=== PATIENT | female | born 1960 | race Two or more races ===

== ENCOUNTER 2017-12-22 06:25 | Day surgery (SDC) | payer BC ==
[2017-12-22] VITALS (8 sets, daily range): BP systolic 111–142; BP diastolic 77–89
[~2017-12-22] VITALS: Ht 165.1 cm; Wt 71.7 kg
[2017-12-22] MEDS ORDERED: LR 1000ml 1,000 ML IVLG SCH (06:53)
[2017-12-22] MEDS ORDERED: Midazolam 2mg/2ml Inj ONE (07:00)
[2017-12-22] MEDS ORDERED: Propofol 200mg/20ml IV ONE (07:00)
[2017-12-22] MEDS ORDERED: LR 1000ml ONE (07:00)
[2017-12-22] MEDS ORDERED: Lidocaine 1% MPF 10mg/ml 5ml ONE (07:00)
[2017-12-22] MEDS ORDERED: ASPIR 8181 MG ORAL (07:08)
[2017-12-22] MEDS ORDERED: LISINOPRIL5 MG ORAL (07:08)
[2017-12-22] MEDS ORDERED: GLYBURIDE5 MG PO (07:08)
[2017-12-22] MEDS ORDERED: METFORMIN HCL1000 M3 PO (07:08)
--- NOTE | 2017-12-22 08:06 | Anethesia Preoperative Eval ---
Anesthesia Pre-op PMH/ROS General Date of Evaluation: Dec 22, 2017 Time of Evaluation: 07:15 Anesthesiologist: Willam ASA Score: ASA 1 Mallampati Score Class I : Soft palate, uvula, fauces, pillars visible Class II: Soft palate, uvula, fauces visible Class III: Soft palate, base of uvula visible Class IV: Only hard plate visible Mallampati Classification: Class I Surgeon: Jeffery Diagnosis: feccal blood Surgical Procedure: EGD/Colonoscopy Anesthesia History: none Family History: no anesthesia problems Allergies: Coded Allergies: No Known Allergies (Unverified , 12/22/17) Medications: see eMAR Past Medical History Cardiovascular: Reports: HTN Pulmonary: Denies: asthma, COPD, [place], other Gastrointestinal/Genitourinary: Denies: GERD, CRI, ESRD, other Neurologic/Psychiatric: Denies: dementia, CVA, depression/anxiety, TIA, other Endocrine: Reports: DM - BS 235, will continue meds post op HEENT: Denies: cataract (L), cataract (R), glaucoma, [place] (L), [place] (R), other Hematology/Immune: Denies: anemia, DVT, bleeding disorder, other Musculoskeletal/Integumentary: Denies: OA, RA, DJD, DDD, edema, other Anesthesia Pre-op Phys. Exam Physician Exam Last Vital Signs Date Time Temp Pulse Resp B/P (MAP) Pulse Ox O2 Delivery O2 Flow Rate FiO2 12/22/17 06:59 97.8 81 17 142/77 98 Room Air Constitutional: NAD Neurologic: CN 2-12 intact Cardiovascular: RRR Respiratory: CTA Gastrointestinal: S/NT/ND Airway Exam Mallampati Score: Class I MO: full ROM: full Teeth: missing Dentures: upper, lower - partials Anesthesia Pre-op A/P Labs chart reviewed Accucheck 235 Studies Pre-op Studies: EKG Risk Assessment & Plan Assessment: A&Ox4 Plan: MAC Status Change Before Surgery: No Pre-Antibiotics Given Within 1 Hr of Incision: Alexus Marques CRNA Dec 22, 2017 08:06
--- NOTE | 2017-12-22 08:07 | Immediate Post-Op Evaluation ---
Immediate Post-Op Evalulation Immediate Post-Op Evalulation Procedure: EGD/Colon Date of Evaluation: Dec 22, 2017 Time of Evaluation: 08:30 IV Fluids: LR 550 ml Blood Products: 0 Estimated Blood Loss: 0 Urinary Output: 0 Blood Pressure Systolic: 111 Blood Pressure Diastolic: 79 Pulse Rate: 84 Respiratory Rate: 18 O2 Sat by Pulse Oximetry: 99 Temperature (Fahrenheit): 98.7 Pain Score (1-10): 0 Nausea: No Vomiting: No Complications none noted Patient Status: awake, reacts Hydration Status: adequate Given Within 1 Hr of Incision: No - none per surgeon Alexus Quarles CRNA Dec 22, 2017 08:07
--- NOTE | 2017-12-22 08:08 | 48 Hour Post Anesthesia Eval ---
Post Anesthesia Evaluation Procedure: EGD/Colon Date of Evaluation: Dec 22, 2017 Time of Evaluation: 08:55 Blood Pressure Systolic: 123 0: 77 Pulse Rate: 82 Respiratory Rate: 20 Temperature (Fahrenheit): 98.7 O2 Sat by Pulse Oximetry: 99 Airway: patent Nausea: No Vomiting: No Pain Intensity: 0 Hydration Status: adequate Mental Status/LOC: patient returned to baseline Post-Anesthesia Complications: none noted Follow-up care needed: patient intructions given Alexus Quarles CRNA Dec 22, 2017 08:08
--- NOTE | 2017-12-22 15:47 | Pre-Procedure Note/Attestation ---
Pre-Procedure Note/Attestation Complete Prior to Procedure Planned Procedure: not applicable Procedure Narrative: EGGD/Colon Indications for Procedure Pre-Operative Diagnosis: OB (+) Attestation I attest that I discussed the nature of the procedure; its benefits; risks and complications; and alternatives (and the risks and benefits of such alternatives ), prior to the procedure, with the patient (or the patient's legal dental sales representative). I attest that, if there was a reasonable possibility of needing a blood transfusion, the patient (or the patient's legal dental sales representative) was given the [facility] standardized written summary, pursuant to the Eduard Ranier Blood Safety Act ([place] Health and Safety Code # 1645, as amended). I attest that I re-evaluated the patient just prior to the surgery and that there has been no change in the patient's H&P, except as documented below: KALEY HURTADO Dec 22, 2017 15:47
--- NOTE | 2017-12-22 15:47 | Short Stay Surgery H&P ---
History of Present Illness History of Present Illness Chief Complaint See typed H&P HPI Chantell Hinton is a 57 year old female who was admitted on for Other Fecal Abnormality Patient History Allergies: Coded Allergies: No Known Allergies (Unverified , 12/22/17) PAST MEDICAL HISTORY: Past Surgeries: Social History: Medication History Scheduled Aspirin* (Aspir 81*), 81 MG ORAL DAILY, (Reported) Glyburide (Glyburide), 10 MG PO BID, (Reported) Lisinopril (Lisinopril*), 5 MG ORAL DAILY, (Reported) Metformin HCl (Metformin HCl ER), 1,000 MG PO BID, (Reported) Physical Exam Vital Signs Last Vital Signs Date Time Temp Pulse Resp B/P (MAP) Pulse Ox O2 Delivery O2 Flow Rate FiO2 12/22/17 09:25 72 18 139/79 97 Room Air 12/22/17 09:05 97.0 12/22/17 08:40 3.0 Plan Attestation Are the patient's medical conditions optimized for surgery? KALEY HURTADO Dec 22, 2017 15:47
--- NOTE | 2017-12-22 15:48 | Endoscopy Procedure Note ---
Endoscopy Procedure Note Indication for Procedure: OB (+) Operative Findings/Diagnosis: mild non erosive gastritis Specimen: yes Pt Tolerated Procedure Well: Yes Estimated Blood Loss: none Anesthesiologist: See report Anesthesia: MAC, moderate sedation Medication Given: see anesthesia record Implant(s) used?: No 50 yrs or older w/o bx or poly: Not Applicable 10yrs. F/U not recommended: Not Applicable If not recommended, why?: KALEY HURTADO Dec 22, 2017 15:48
--- NOTE | 2017-12-22 15:50 | Brief Operative Note ---
Immediate Post Operative Note Operative Note Chief Complaint: OB (+) Pre-op Diagnosis: OB (+) Procedure: EGD with Bx/Colon with bx Post-op Diagnosis: mild non erosive gastritis - bx dim TV colon polyp - bx o/w normal colon x 2, including 5 cm TI Surgeon: farida Anesthesiologist: see notes Anesthesia: MAC Specimen: yes Complications: none Condition: stable Fluids: reported Estimated Blood Loss: none Drains: none Implant(s) used?: No KALEY HURTADO Dec 22, 2017 15:50
--- NOTE | 2017-12-23 04:15 | Procedure Note ---
DATE OF PROCEDURE: 12/22/2017 GASTROENTEROLOGY PROCEDURE REPORT PROCEDURE: Upper gastrointestinal endoscopy with biopsy as well as colonoscopy with biopsy. SURGEON: Marianna Gil M.D. ANESTHESIA: Please see the separate anesthesiologist notes for details. PRE-ENDOSCOPIC DIAGNOSIS: Heme-positive stools. POST-ENDOSCOPIC DIAGNOSES: 1. Nonerosive, erythematous mild gastritis, status post biopsy of the antrum. 2. Normal terminal ileum. 3. Diminutive polyp in the proximal transverse colon, status post biopsy removal. DESCRIPTION OF PROCEDURE: The procedure, its risks, indications, alternatives, and possible complications were explained and an informed consent was obtained. Diagnostic upper endoscope was introduced into the oropharynx and advanced to the duodenum. The endoscope was then gradually withdrawn and the mucosa was examined carefully. Examination of the upper gastrointestinal mucosa revealed mild nonerosive erythematous gastritis, and biopsies of the antrum were sent to pathology for review. The colonoscope was removed. The rectal exam was done, and the colonoscope was introduced into the rectum and advanced 5 cm into the terminal ileum. The colonoscope was then withdrawn all the way to the rectum gradually. Mucosa was examined carefully. Because of lack of the pathologic finding that would explain heme-positive stools, the colonoscope was then readvanced to the cecum and once again withdrawn very carefully. The only pathology identified was a diminutive 3 to 4 mm polyp versus fold in the proximal transverse colon, which was biopsied off. The remainder of the examination did not show any pathology. The colonoscope was removed, and the patient was sent to recovery in good condition. COMPLICATIONS: None. ASSESSMENT: There was no abnormality in this examination, which could clearly explain the heme-positive stools, although the patient may have had this finding due to the gastritis. The patient's blood count and stool occult blood will be evaluated as an outpatient and consideration will be made to possible capsule endoscopy to complete the workup of the gastrointestinal tract. RECOMMENDATIONS: 1. Resume oral diet. 2. Outpatient followup. 3. Follow up biopsy results. 4. Monitor CBC and stool Hemoccult. Marianna Gil M.D. DR: BISHNU JOB#: [id number] CC:
== END 2017-12-22 09:45 | disposition home or self-care (01) ==
LOC: GAS 06:25
DX: K29.70 Gastritis, unspecified, without bleeding (principal); K92.1 Melena; B96.81 Helicobacter pylori [H. pylori] as the cause of diseases classified elsewhere; D12.3 Benign neoplasm of transverse colon; Z79.82 Long term (current) use of aspirin; Z79.84 Long term (current) use of oral hypoglycemic drugs; I10 Essential (primary) hypertension; E11.40 Type 2 diabetes mellitus with diabetic neuropathy, unspecified; Z83.3 Family history of diabetes mellitus; Z82.49 Family history of ischemic heart disease and other diseases of the circulatory system
CPT/HCPCS: 43239; 45380; 82962; J2250; J2704; J7120; 94003; 94150

== ENCOUNTER 2020-01-14 17:00 | Inpatient (IN) | payer BC ==
[~2020-01-14] VITALS: Ht 172.7 cm; Wt 82.6 kg
[~2020-01-14 17:00] MED LIST: ASPIR 8181 MG ORAL; GLYBURIDE5 MG PO; LISINOPRIL5 MG ORAL; METFORMIN HCL1000 M3 PO
--- NOTE | 2020-01-14 17:20 | NUR ---
ED Nurse Note: Pt walked in from home c/o bilateral leg ulcers that are worsening. Seen by Dr. Gil today and he referred her here. Respirations even and unlabored on room air. A+Ox4. Vitals stable as documented. Addendum: 01/14/20 at 1741 by BDUTTON correction: ULCER ON LEFT LEG
[2020-01-14 17:30] VITALS: BP 144/76
[2020-01-14] MEDS ORDERED: cefTRIAXone 1 GM in NS 55 ML IVPB ONE (17:30)
--- NOTE | 2020-01-14 17:34 | Emergency Room Report ---
History of Present Illness General Chief Complaint: Skin Rash/Abscess Source: Patient, Significant Other Present Illness HPI 59-year-old female history of diabetes presented for left lower extremity ulcer. Patient states the ulcer has been gradually worsening over the past year. Worse over the past week. Patient currently on oral antibiotics however still worsening and increasing in size. She denies any pain. Some drainage from the wound. She is compliant with her diabetic medications. She saw her primary care doctor today, Dr. Anderson, who sent her in for further evaluation and IV antibiotics. She denies any fevers. Allergies: Coded Allergies: No Known Allergies (Unverified , 12/22/17) Patient History Past Medical History: see triage record Last Menstrual Period: na Reviewed Nursing Documentation: PMH: Agreed; PSxH: Agreed Nursing Documentation-PMH Hx Cardiac Problems: Yes Hx Hypertension: Yes Hx Diabetes: Yes Hx Cancer: No Hx Gastrointestinal Problems: No Hx Neurological Problems: No Review of Systems All Other Systems: negative except mentioned in HPI Physical Exam Vital Signs Date Time Temp Pulse Resp B/P (MAP) Pulse Ox O2 Delivery O2 Flow Rate FiO2 01/14/20 17:10 98.6 85 20 144/76 (98) 97 Room Air Sp02 EP Interpretation: reviewed, normal General Appearance: well appearing, no apparent distress Head: normocephalic, atraumatic Eyes: bilateral eye PERRL, bilateral eye EOMI ENT: hearing grossly normal, moist mucus membranes Neck: full range of motion, supple Respiratory: lungs clear, normal breath sounds, no rhonchi, no respiratory distress, no retraction, no wheezing Cardiovascular #1: normal peripheral pulses, regular rate, rhythm, no murmur Gastrointestinal: non tender, soft, non-distended, no guarding Musculoskeletal: other - Ulcer noted to left lower extremity, lateral side, deep base with exudates noted. Approximately 3 x 4 cm. 2+ pulses palpated in the left foot, mild surrounding erythema of the ulcer with mild tenderness to palpation however no calf tenderness Neurologic: alert, oriented x3, no focal defects Skin: Decubitus/Ulcer - Ulcer noted to left lateral lower extremity, normal color, warm/dry Medical Decision Making Diagnostic Impression: Primary Impression: Infected ulcer of skin ER Course Differential diagnosis included but not limited to stasis ulcer, nonhealing wound, cellulitis to name few. Laboratory studies and blood culture sent. IV antibiotics started. As patient has failed outpatient treatment for her ulcer she will require admission to the hospital. Patient signed out to Dr. Vides pending admission Last Vital Signs Date Time Temp Pulse Resp B/P (MAP) Pulse Ox O2 Delivery O2 Flow Rate FiO2 01/14/20 17:10 98.6 85 20 144/76 (98) 97 Room Air Status: unchanged Disposition: ADMITTED INPATIENT Condition: Serious Signed Out To: Bandar Lorenzana M.D. Jan 14, 2020 17:34
[2020-01-14 18:00] LABS: BASOPHILS % (AUTO) 0.8 % (0.0-2.0); EOSINOPHILS % (AUTO) 1.4 % (0.0-3.0); HEMATOCRIT 31.6 % (37.0-47.0); HEMOGLOBIN 10.7 G/DL (12.0-16.0); LYMPHOCYTES % (AUTO) 25.1 % (20.0-45.0); MEAN CORPUSCULAR VOLUME 81 FL (80-99); MONOCYTES % (AUTO) 4.7 % (1.0-10.0); PLATELET COUNT 315 K/UL (150-450); RED BLOOD COUNT 3.91 M/UL (4.20-5.40); RED CELL DISTRIBUTION WIDTH 11.8 % (11.6-14.8); WHITE BLOOD COUNT 8.3 K/UL (4.8-10.8)
[2020-01-14 18:07] LABS: ANION GAP 9 mmol/L (5-15); BLOOD UREA NITROGEN 18 mg/dL (7-18); CALCIUM 9.2 MG/DL (8.5-10.1); CARBON DIOXIDE 28 MMOL/L (21-32); CHLORIDE 103 MMOL/L (98-107); CREATININE 0.7 MG/DL (0.55-1.30); POTASSIUM 4.3 MMOL/L (3.5-5.1); SODIUM 140 MMOL/L (136-145)
[2020-01-14 18:12] LABS: ALANINE AMINOTRANSFERASE 23 U/L (12-78); ALBUMIN 3.3 G/DL (3.4-5.0); ALBUMIN/GLOBULIN RATIO 0.8 (1.0-2.7); ALKALINE PHOSPHATASE 78 U/L (46-116); ASPARTATE AMINO TRANSFERASE 14 U/L (15-37); BILIRUBIN,TOTAL 0.1 MG/DL (0.2-1.0)
--- NOTE | 2020-01-14 19:10 | NUR ---
ED Nurse Note: Report given to BIANKA Regalado. Pt in stable condition; plan of care endorsed.
--- NOTE | 2020-01-14 19:30 | NUR ---
ED Nurse Note: Reassesed patient, patient resting in bed, no acute distress noted.
--- NOTE | 2020-01-14 19:45 | NUR ---
ED Nurse Note: ERMD at bedside.
[2020-01-14] MEDS ORDERED: AMOXICILLI200 MG/5 M PO (20:31)
[2020-01-14] MEDS ORDERED: ATORVASTATIN CA20 MG ORAL (20:31)
[2020-01-14] MEDS ORDERED: ACTOS45 MG ORAL (20:31)
[2020-01-14] MEDS ORDERED: LISINOPRIL-HCT1 EACH ORAL (20:31)
[2020-01-14] MEDS ORDERED: JANUVIA25 MG ORAL (20:31)
[2020-01-14] MEDS ORDERED: ASPIRIN325 MG ORAL (20:31)
[2020-01-14] MEDS ORDERED: BENZONATATE200 MG ORAL (20:31)
[2020-01-14] MEDS ORDERED: IBUPROFEN600 MG ORAL (20:31)
--- NOTE | 2020-01-14 21:00 | NUR ---
NURSE NOTES: Received from Wilfrido Jarvis, will wait fpr pt arrival
--- NOTE | 2020-01-14 21:05 | NUR ---
TRANSFER TO FLOOR: Patient transferred to Med Surg 3E as ordered, per Dr. Langston. Report given to BIANKA Salvador. Family informed of transfer. Patient transferred via gurney with 1 RN in stable condition.
--- NOTE | 2020-01-14 21:05 | NUR ---
ED Nurse Note: Report given to BIANKA Salvador in med surg.
--- NOTE | 2020-01-14 21:18 | NUR ---
NURSE NOTES: Pt arrived to the unit via gurney, escorted by er staff and family by the bed side, pt has no s/s of distress. Pt helped transfer to unit bed . pt is a/ox4, breaths even regular and unlabored, Vitals Bp 116/70, HR 75 T 97.9, RR 18 and o2sat 96 at RA. Denies pain at rest but mild pain of left leg when pt moves. skin otherwise intact except lateral left lower leg with a venous ulcer. . Pt has Rt AC 20g hep locked .. Will notify Md for admission orders
--- NOTE | 2020-01-14 22:10 | NUR ---
NURSE NOTES: Md notified about admission, orders received and carried
[2020-01-15] VITALS: BP 122/76
[2020-01-15 04:00] VITALS: BP 120/73
[2020-01-15] MEDS ORDERED: ceFAZolin 1gm/50ml Premix 50 ML IV SCH (06:00)
[2020-01-15] MEDS: NovoLOG Insulin Flexpen SUBQ SCH ×4 (06:30→20:53)
[2020-01-15 08:00] VITALS: BP 115/71
[2020-01-15] MEDS ORDERED: ceFAZolin sod 1 GM in NS 55 ML IVPB SCH ×2 (08:00→11:00)
--- NOTE | 2020-01-15 08:00 | NUR ---
CHARGE NURSE NOTES: Was scheduled to administer the cefalzolin IVPB at 0800 but pt claimed that it was given at 0700, saw the Cefazolin hanging & emptied at this time. Verified w/ the previous RN & confirmed that she administered it. Timing changed.
[2020-01-15] MEDS ORDERED: sitaGLIPtin 25mg tab ORAL SCH (09:00)
[2020-01-15] MEDS ORDERED: Lisinopril 2.5mg tab ORAL SCH (09:00)
--- NOTE | 2020-01-15 09:00 | NUR ---
NURSE NOTES: Patient is in bed awake and able to verbalize needs. Stable. Denies pain or SOB. Patient instructed to use call light for assistance, verbalized understanding. Patient is in bed in locked and lowest position with call light within reach. All needs met at this time. Will continue to monitor.
[2020-01-15] MEDS: Lisinopril 10mg tab ORAL SCH (09:03)
[2020-01-15] MEDS: metFORMIN 500mg tab ORAL SCH ×2 (09:06→17:58)
[2020-01-15] MEDS: hydroCHLOROthiazide 12.5mg TAB ORAL SCH (09:07)
[2020-01-15 12:00] VITALS: BP 125/70
[2020-01-15] MEDS: ceFAZolin sod 1 GM in NS 55 ML IVPB SCH ×2 (14:13→22:39)
[2020-01-15 16:00] VITALS: BP 101/57
--- NOTE | 2020-01-15 19:30 | History and Physical Report ---
DATE OF ADMISSION: 01/14/2020 HISTORY OF PRESENT ILLNESS: This is a 59-year-old female who is a known diabetic. She came to the hospital with gradually worsening ulcer over the left lower extremity. She has failed oral antibiotics. She was admitted for further evaluation and workup. PAST MEDICAL HISTORY: Notable for diabetes mellitus, nonhealing ulcer of the lower extremity. MEDICATIONS: Her list of home medications reconciled in the chart. REVIEW OF SYSTEMS: Denies any headaches, hematemesis, melena, hematochezia, night sweats, or weight loss. PHYSICAL EXAMINATION: GENERAL: Reveals a 59-year-old female. VITAL SIGNS: Blood pressure 101/50, heart rate 84, respiratory rate , afebrile. HEENT: Unremarkable. LUNGS: Clear breath sounds bilaterally. ABDOMEN: Soft. EXTREMITIES: There is no edema. There is a nonhealing ulcer of the left lower extremity. LABORATORY AND DIAGNOSTIC DATA: Normal CBC except hemoglobin 10. Glucose 132. Imaging studies, the patient underwent venous duplex overnight which is negative for DVT. IMPRESSION: 1. Nonhealing ulcer, left lower extremity. 2. Diabetes mellitus. 3. . DISCUSSION: Admit to the hospital. We will start broad-spectrum antibiotics. We will consult Podiatry and Vascular Surgery. We will obtain arterial studies of the lower extremities. We will consult Nephrology. We will follow as remote encoding operations supervisor. Boom Shannon M.D. DR: Anna Marie JOB#: [id number] CC:
--- NOTE | 2020-01-15 19:39 | NUR ---
HAND-OFF: Report given to Amanda CARLTON. Patient is stable.
--- NOTE | 2020-01-15 19:40 | NUR ---
NURSE NOTES: Received report & pt from BIANKA Peña. Pt lying in bed, a&ox4, in room air, family member at bedside. No s/s of acute distress & no c/o pain. Lower left leg noted with open wound (diabetic ulcer). IV site intact & S/L'd. Plan of care discussed.
--- NOTE | 2020-01-15 19:55 | NUR ---
NURSE NOTES: Dr. Dumont (Vascular surggeon) came to see pt. New orders received.
[2020-01-15 20:00] VITALS: BP 114/63
--- NOTE | 2020-01-15 21:00 | NUR ---
NURSE NOTES: Dressed pt's lower left leg ulcer with 4x4 & kerlix. Pt refused betadine & states the last time she had betadine in her leg ulcer, it stings/phan so bad.
--- NOTE | 2020-01-15 21:43 | General Progress Note ---
Progress Note Progress Note Patient seen and examined Consult dictated # [id number] Left leg wound ulcer necrosis with palpable bone fibula & clinical osteo Palpable pedal pulses with no sig arterial insufficiency DM, Obesity Rec Podiatry eval for I&D & wound vac Plastic surgery eval--may need flap or skin graft placement later date Abx per ID--picc line 6 wks Strict sugar control Venous reflux leg duplex as outpatient Meño Morse MD Jan 15, 2020 21:43
[2020-01-16 04:00] VITALS: BP 131/73
[2020-01-16] MEDS: ceFAZolin sod 1 GM in NS 55 ML IVPB SCH (05:52)
[2020-01-16] MEDS: NovoLOG Insulin Flexpen SUBQ SCH ×4 (06:00→20:49)
--- NOTE | 2020-01-16 07:00 | Consultation ---
DATE OF CONSULTATION: 01/15/2020 VASCULAR SURGERY CONSULTATION CONSULTING PHYSICIAN: Meño Morse M.D. REFERRING PHYSICIAN: Boom Shannon M.D. REASON FOR CONSULTATION: Nonhealing left above ankle leg wound ulceration. HISTORY OF PRESENT ILLNESS: This is a 59-year-old obese, diabetic female who probably has left above ankle leg wound ulceration for over a year. Her daughter reports she was scratched by a cat and has virtually worsening wound. She failed oral antibiotics. She presented for further evaluation. She denies any history of claudication or rest pain. She has no other complaints. No chest pain or shortness of breath. PAST MEDICAL HISTORY: As above, history of diabetes mellitus, obesity, hypertension, left leg wound for one year. MEDICATIONS: See attached MAR. ALLERGIES: Denies any history of allergies. SOCIAL HISTORY: Denies any history of smoking, drugs, or alcohol abuse. FAMILY HISTORY: Unremarkable. SYSTEM REVIEW: CARDIOVASCULAR: No history of chest pain or palpitations. PULMONARY: No cough. No hemoptysis. GASTROINTESTINAL: No history of abdominal pain, constipation, or diarrhea. GENITOURINARY: No urinary symptoms, frequency, or hematuria. NEUROLOGIC: No history of strokes or seizures. PHYSICAL EXAMINATION: VITAL SIGNS: The patient is afebrile at 97.6, heart rate 76, respirations 16, and blood pressure 114/63 with the mean of 80. Pulse oximetry is 98%. She has palpable radial pulses. NECK: No evidence of carotid bruit. LUNGS: Clear to auscultation. HEART: Regular rate and rhythm. ABDOMEN: Soft and nontender. EXTREMITIES: She has palpable femoral pulses, palpable posterior tibial, and dorsalis pedal pulses 3+ palpable. Feet are warm and well perfused. She has some stasis changes of lower extremity. She has a large open left lateral above ankle wound and necrosis with easily palpable fibula bone through the wound consistent with necrosis, but no drainage. LABORATORY DATA: Revealed WBC 8.3, hemoglobin 10.7, and platelets 316,000. Sodium 140, potassium 4.3, BUN 18, creatinine 0.7. IMPRESSION: 1. Nonhealing left above ankle lateral leg open wound ulceration and necrosis with easily palpable fibula bone and clinical osteomyelitis and wound necrosis. 2. Palpable pedal pulses with no significant arterial insufficiency. 3. Diabetes mellitus. 4. No evidence of DVT on duplex. PLAN AND RECOMMENDATIONS: 1. Antibiotics per Infectious Disease service for clinical osteomyelitis for at least six weeks. Obtain x-ray and MRI to evaluate the left leg. 2. Podiatry consultation for wound debridement of the left leg wound and wound VAC therapy. The patient may require skin or flap wound coverage by Plastic Surgery at a later date. 3. Strict sugar control. The above was discussed at length with the patient and daughter and nurse at the bedside. Meño Morse M.D. DR: GARCÍA JOB#: [id number] CC: SHERRY
--- NOTE | 2020-01-16 07:29 | NUR ---
NURSE NOTES: Report received from Amanda CARLTON, rounds made. Patient resting in high fowlers position in bed, no distress on RA. AOx4, calm. No pain, SOB, NV. RAC heplock intact, site asymptomatic. LLE dressing CDI. Call light in reach, bed in lowest position, will continue to monitor.
--- NOTE | 2020-01-16 07:30 | NUR ---
HAND-OFF: Report given to BIANKA Montaño. Rounds done.
[2020-01-16 08:00] VITALS: BP 142/92
--- NOTE | 2020-01-16 08:15 | Consultation ---
DATE OF CONSULTATION: 01/16/2020 ENDOCRINOLOGY CONSULTATION CONSULTING PHYSICIAN: Ankit Salas M.D. REFERRING PHYSICIAN: Boom Shannon M.D. REASON FOR CONSULTATION: Diabetes management. HISTORY OF PRESENT ILLNESS: The patient is a 59-year-old female with history of noncompliance with diabetic medication and uncontrolled diabetes, who presented to the hospital with leg infection. The ulcer has been gradually worse and it is on the left lower extremity and failed oral antibiotic. The patient was admitted to the hospital for further observation and treatment. PAST MEDICAL HISTORY: Diabetes and healing ulcer. MEDICATIONS: Reviewed and reconciled. For diabetes, she is on metformin, glyburide, Actos, and Januvia REVIEW OF SYSTEMS: As per HPI. FAMILY HISTORY: Diabetes. SOCIAL HISTORY: No smoking, alcohol, or drug use. PHYSICAL EXAMINATION: VITAL SIGNS: Blood pressure is 120/80, pulse 72, temperature 98, respiratory rate 18. HEENT: Pupils reactive to light. Sclerae anicteric. NECK: No JVD. No thyromegaly. No bruit. LUNGS: Clear. HEART: Regular rate and rhythm. ABDOMEN: Positive bowel sounds. EXTREMITIES: No clubbing or cyanosis. Positive for edema and left lower extremity ulcer. LABORATORY VALUES: Sodium 140, potassium 4.3, chloride 102, bicarb 28, BUN 18, creatinine 0.7, glucose of 132. WBC 8, hemoglobin 10, hematocrit 31, platelet of 315. DIAGNOSES: 1. Diabetes, out of control. 2. Leg ulcer. DISCUSSION: The patient's diabetes seems to be fairly well controlled on diabetic medications on oral agents. Therefore after discharge, I do not see the need for insulin injections. As long as the patient stays compliant with the current regimen, that will suffice. As a matter of fact, she might need a lower dose of glyburide later on once she becomes more compliant with the rest of the medications, which are metformin, Januvia, and Actos. I will follow her during the hospital stay. Hemoglobin A1c will be ordered and followed. Thank you, Dr. Shannon, for the courtesy of this consultation. Ankit Salas M.D. DR: BIANKA/KENDY JOB#: [id number] CC: SHERRY
[2020-01-16] MEDS: Lisinopril 10mg tab ORAL SCH (09:11)
[2020-01-16] MEDS: metFORMIN 500mg tab ORAL SCH ×2 (09:11→18:21)
[2020-01-16] MEDS: hydroCHLOROthiazide 12.5mg TAB ORAL SCH (09:11)
--- NOTE | 2020-01-16 09:18 | NUR ---
NURSE NOTES: Left lower leg dressing changed as ordered. Old dressing noted with small amount of serosanguineous drainage. Three areas to left outer leg, wound bed pink dry, surrounding skin intact. Wound care done: betadine to surrounding skin, 4x4, kerlix.
--- NOTE | 2020-01-16 09:28 | Consultation ---
History of Present Illness General Date patient seen: Jan 16, 2020 Time patient seen: 09:15 Chief Complaint: Skin Rash/Abscess Referring physician: Dr. Shannon Reason for Consultation: LLE anterior lower leg ulceration. Present Illness HPI Pt seen bedside for LLE lower leg ulceration. Pt states her wound has not shown improved healing. Pt relates moderate pain to LLE. Allergies: Coded Allergies: No Known Allergies (Unverified , 12/22/17) Medication History Scheduled Aspirin* (Aspirin*), 325 MG ORAL DAILY, (Reported) Atorvastatin Calcium* (Atorvastatin Calcium*), 10 MG ORAL DAILY, (Reported) Benzonatate* (Benzonatate*), 200 MG ORAL THREE TIMES A DAY, (Reported) Glyburide (Glyburide), 10 MG PO BID, (Reported) Ibuprofen* (Motrin*), 400 MG ORAL TID, (Reported) Lisinopril/Hydrochlorothiazide 10-12.5 Mg Tab (Lisinopril-Hctz 10-12.5 Mg Tab), 1 TAB ORAL DAILY, (Reported) Metformin HCl (Metformin HCl ER), 1,000 MG PO BID, (Reported) Pioglitazone Hcl* (Actos*), 45 MG ORAL DAILY, (Reported) Sitagliptin* (Januvia*), 100 MG ORAL DAILY, (Reported) Discontinued Medications Amoxicillin* (Amoxicillin*), 500 MG PO TID, (Reported) Discontinued Reason: MD discontinued med Aspirin* (Aspir 81*), 81 MG ORAL DAILY, (Reported) Discontinued Reason: Pt stopped taking med Lisinopril (Lisinopril*), 5 MG ORAL DAILY, (Reported) Discontinued Reason: Medication dose changed Patient History Healthcare decision maker Resuscitation status Advanced Directive on File Physical Exam Physical Exam Narrative Focused LLE Exam Derm: Lateral lower leg diabetic ulceration, down to level of bone, 100% fibrotic wound base, (-) purulent drainage, (+) edema, erythema. (+) POP Vasc: 2/4 DP/PT pulses Neuro: SILT diminished MSK: MS/ROM WNL Last 24 Hour Vital Signs Date Time Temp Pulse Resp B/P (MAP) Pulse Ox O2 Delivery O2 Flow Rate FiO2 01/16/20 09:11 142/92 01/16/20 08:00 98.2 89 18 142/92 (109) 97 01/16/20 04:00 97.6 73 18 131/73 (92) 95 01/15/20 21:00 Room Air 01/15/20 20:00 97.6 76 16 114/63 (80) 98 01/15/20 16:00 98.6 80 20 101/57 (72) 96 01/15/20 12:00 98.1 73 18 125/70 (88) 96 Intake and Output 01/15/20 01/16/20 18:59 06:59 Intake Total 400 ml 480 ml Balance 400 ml 480 ml Intake Oral 400 ml 480 ml # Voids 3 2 # Bowel Movements 1 Laboratory Tests Test 01/16/20 07:20 Hemoglobin A1c 11.4 % (4.3-6.0) H Height (Feet): 5 Height (Inches): 8.00 Weight (Pounds): 128 Medications Current Medications Medications (Trade) Dose Ordered Sig/Amarilis Route PRN Reason Start Time Stop Time Status Last Admin Dose Admin Aspirin (ASA) 325 mg DAILY ORAL 01/15/20 09:00 02/14/20 08:59 01/16/20 09:10 Atorvastatin Calcium (Lipitor) 10 mg DAILY ORAL 01/15/20 09:00 02/14/20 08:59 01/16/20 09:11 Cefazolin Sodium 1 gm/Sodium Chloride 55 ml @ 110 mls/hr Q8HR IVPB 01/15/20 14:00 01/22/20 10:59 01/16/20 05:52 Dextrose (Dextrose 50%) 25 ml Q30M PRN IV Hypoglycemia 01/16/20 06:15 02/15/20 06:14 Dextrose (Dextrose 50%) 50 ml Q30M PRN IV Hypoglycemia 01/16/20 06:15 02/15/20 06:14 Gabapentin (Neurontin) 200 mg DAILY ORAL 01/15/20 09:00 02/14/20 08:59 01/16/20 09:12 Gabapentin (Neurontin) 300 mg QHS ORAL 01/15/20 21:00 02/14/20 20:59 01/15/20 20:57 Glyburide (Diabeta) 10 mg BID ORAL 01/15/20 09:00 02/14/20 08:59 01/16/20 09:10 Hydrochlorothiazide (Hydrodiuril) 12.5 mg DAILY ORAL 01/15/20 09:00 02/14/20 08:59 01/16/20 09:11 Ibuprofen (Advil) 400 mg EVERY 8 HOURS PRN ORAL Moderate Pain (Pain Scale 4-6) 01/14/20 23:30 02/13/20 23:29 Insulin Aspart (NovoLOG) BEFORE MEALS AND HS SUBQ 01/15/20 06:30 02/14/20 06:29 01/15/20 17:08 Lisinopril (ZestriL) 10 mg DAILY ORAL 01/15/20 09:00 02/14/20 08:59 01/16/20 09:11 Metformin HCl (Glucophage) 1,000 mg BID ORAL 01/15/20 09:00 02/14/20 08:59 01/16/20 09:11 Pioglitazone HCl (Actos) 45 mg ACBREAKFAST ORAL 01/15/20 06:30 02/14/20 06:29 01/16/20 05:52 Sitagliptin Phosphate (Januvia) 100 mg DAILY ORAL 01/16/20 09:00 02/14/20 08:59 01/16/20 09:12 Assessment/Plan Assessment/Plan: A: LLE lateral leg ulceration DM Obesity P: Pt seen and evaluated Discuss findings with patient WBC 8.3 Temp 98.2 MRI ordered to LLE , R/O OM, ST infection Vasc note noted, will follow recs. Pt will most likely benefit from debridement with possible graft placement, wound vac therapy and medical clearance. Will await MRI report before proceeding with surgical intervention Cont IV ABx Daily Betadine dressing to LLE Podiatry will cont to monitor. Franklin Lyon DPM Jan 16, 2020 09:27
--- NOTE | 2020-01-16 10:17 | NUR ---
RADIOLOGY: LT. LEG X-RAYS COMPLETED 1000 HRS. NF
--- NOTE | 2020-01-16 10:20 | Diagnostic Imaging Report ---
Indication: Nonhealing diabetic ulcer in left leg Technique: Grayscale and duplex images of the bilateral lower extremity arteries. Ankle-brachial indices were obtained Comparison: none Findings: Ankle-brachial index on the right is 1.05. On the left is 1.28 Bilaterally, Doppler waveforms at all levels are biphasic or triphasic, demonstrating sharp systolic peaks. No grayscale evidence of focal stenosis, and no focal Doppler flow velocity elevations. Impression: Bilaterally, no evidence of significant peripheral arterial insufficiency
--- NOTE | 2020-01-16 10:55 | Pulmonology Progress Note ---
Assessment/Plan Assessment/Plan IMPRESSION: 1. Nonhealing ulcer, left lower extremity. 2. Diabetes mellitus. DISCUSSION: Continue broad-spectrum antibiotics. Seen by Podiatry and Vascular Surgery. Noted arterial studies of the lower extremities. For MRI today Suspect osteomyelitis Will need debridement, possible bone biopsy and wpund vac Will consult ID Boom Shannon M.D. Subjective Interval Events: None new Constitutional: Reports: no symptoms HEENT: Repors: no symptoms Respiratory: Reports: no symptoms Cardiovascular: Reports: no symptoms Gastrointestinal/Abdominal: Reports: no symptoms Allergies: Coded Allergies: No Known Allergies (Unverified , 12/22/17) Objective Last 24 Hour Vital Signs Date Time Temp Pulse Resp B/P (MAP) Pulse Ox O2 Delivery O2 Flow Rate FiO2 01/16/20 09:11 142/92 01/16/20 08:00 98.2 89 18 142/92 (109) 97 01/16/20 04:00 97.6 73 18 131/73 (92) 95 01/15/20 21:00 Room Air 01/15/20 20:00 97.6 76 16 114/63 (80) 98 01/15/20 16:00 98.6 80 20 101/57 (72) 96 01/15/20 12:00 98.1 73 18 125/70 (88) 96 Intake and Output 01/15/20 01/16/20 19:00 07:00 Intake Total 400 ml 480 ml Balance 400 ml 480 ml Intake Oral 400 ml 480 ml # Voids 3 2 # Bowel Movements 1 General Appearance: no acute distress HEENT: normocephalic Respiratory/Chest: chest wall non-tender Cardiovascular: normal peripheral pulses Abdomen: normal bowel sounds Microbiology Date/Time Source Procedure Growth Status 01/14/20 17:35 Blood Blood Culture - Preliminary NO GROWTH AFTER 24 HOURS Resulted 01/14/20 17:20 Blood Blood Culture - Preliminary NO GROWTH AFTER 24 HOURS Resulted Laboratory Tests 01/16/20 07:20: Hemoglobin A1c 11.4H Current Medications Medications (Trade) Dose Ordered Sig/Amarilis Route PRN Reason Start Time Stop Time Status Last Admin Dose Admin Aspirin (ASA) 325 mg DAILY ORAL 01/15/20 09:00 02/14/20 08:59 01/16/20 09:10 Atorvastatin Calcium (Lipitor) 10 mg DAILY ORAL 01/15/20 09:00 02/14/20 08:59 01/16/20 09:11 Cefazolin Sodium 1 gm/Sodium Chloride 55 ml @ 110 mls/hr Q8HR IVPB 01/15/20 14:00 01/22/20 10:59 01/16/20 05:52 Dextrose (Dextrose 50%) 25 ml Q30M PRN IV Hypoglycemia 01/16/20 06:15 02/15/20 06:14 Dextrose (Dextrose 50%) 50 ml Q30M PRN IV Hypoglycemia 01/16/20 06:15 02/15/20 06:14 Gabapentin (Neurontin) 200 mg DAILY ORAL 01/15/20 09:00 02/14/20 08:59 01/16/20 09:12 Gabapentin (Neurontin) 300 mg QHS ORAL 01/15/20 21:00 02/14/20 20:59 01/15/20 20:57 Glyburide (Diabeta) 10 mg BID ORAL 01/15/20 09:00 02/14/20 08:59 01/16/20 09:10 Hydrochlorothiazide (Hydrodiuril) 12.5 mg DAILY ORAL 01/15/20 09:00 02/14/20 08:59 01/16/20 09:11 Ibuprofen (Advil) 400 mg EVERY 8 HOURS PRN ORAL Moderate Pain (Pain Scale 4-6) 01/14/20 23:30 02/13/20 23:29 Insulin Aspart (NovoLOG) BEFORE MEALS AND HS SUBQ 01/15/20 06:30 02/14/20 06:29 01/15/20 17:08 Lisinopril (ZestriL) 10 mg DAILY ORAL 01/15/20 09:00 02/14/20 08:59 01/16/20 09:11 Metformin HCl (Glucophage) 1,000 mg BID ORAL 01/15/20 09:00 02/14/20 08:59 01/16/20 09:11 Pioglitazone HCl (Actos) 45 mg ACBREAKFAST ORAL 01/15/20 06:30 02/14/20 06:29 01/16/20 05:52 Sitagliptin Phosphate (Januvia) 100 mg DAILY ORAL 01/16/20 09:00 02/14/20 08:59 01/16/20 09:12 Boom Shannon MD Jan 16, 2020 10:55
--- NOTE | 2020-01-16 11:01 | Diagnostic Imaging Report ---
Indication: Lower left leg pain Technique: 2 views of the left tibia and fibula Comparison: Findings: There is a large soft tissue ulcer in the lateral distal leg. The lateral views suggests a second smaller ulcer located more posteriorly There is questionable very slight indistinctness and equivocal minimal periosteal elevation of the underlying lateral fibular cortex. No definite osteolytic lesion. No acute fractures. No radiopaque foreign body. No evidence of soft tissue gas Impression: 2 soft tissue ulcers in the distal left leg, presumably clinically evident Equivocal slight indistinctness of the subjacent fibular cortex and equivocal trace periosteal elevation, if real could indicate underlying osteomyelitis. Consider MRI for better characterization Negative for evidence of radiopaque foreign body or soft tissue gas
--- NOTE | 2020-01-16 11:24 | Diagnostic Imaging Report ---
Indication: Left lower extremity ulcer, gradually worsening over the past year and past week Technique: 2 views of the left ankle Comparison: None. Findings: There is a large soft tissue ulcer involving the left lateral distal leg soft tissues. There is suggestion of some periosteal elevation of the underlying lateral tibial cortex. No definite osteolytic destruction. There is evidence of a second ulcer located slightly posteriorly to the main ulcer on the lateral view. There is a small plantar spur. No acute fractures. No radiopaque foreign bodies. No worrisome soft tissue gas Impression: Large left distal leg ulcer, corresponding to stated clinical findings Mild lateral fibular periosteal elevation underlying the above. This is concerning for osteomyelitis. Consider MRI or nuclear medicine bone scan for better characterization
[2020-01-16 12:00] VITALS: BP 119/81
--- NOTE | 2020-01-16 12:58 | NUR ---
CASE MANAGEMENT: INITIAL REVIEW 59YR OLD FEMALE FROM DR. YANG CC: SKIN RASH / ABSCESS SI: NONHEALING DIABETIC ULCER OF LEFT LOWER EXTREMITY INFECTION . DM 98.6 85 20 144/76 97% ON RA H/H 10.7/31.6 BG 132 T.BEN 0.1 AST 14 IS:IV ROCEPHIN X1 \: 3E MED SURG UNIT PLAN: IMAGING VENOUS DUPLEX DUPLEX SCAN LOW EXT ANKLE X-RAY CONSULT SURG CONSULT PODIATRY CONSULT ID CASE MANAGEMENT: REVIEW 01/15/20 SI: DIABETIC LEFT LEG INFECTION 98.1 73 18 125/70 96% ON RA IS:IV ROCEPHIN Q8HR NEURONTIN PO QD HYDRODIURIL PO QD ASA PO QD JANUVIA PO QD LIPITOR PO QD METFORMIN PO BID ACTOS PO AC&HS DIABETA PO BID \: 3E MED SURG UNIT PLAN: IMAGING: VENOUS DUPLEX DUPLEX SCAN LOW EXT ANKLE X-RAY CONSULT SURG - NEEDS DEBARMENT, POSSIBLE BONE BIOPSY, GRAFT AND WOUND VAC CONSULT PODIATRY CONSULT ID BLOOD CULTURE-PENDING OBTAIN CLEARANCE FOR SURG CASE MANAGEMENT: INITIAL REVIEW 01/16/20 SI: DIABETIC LEFT LEG INFECTION 98.2 89 18 142/92 97% ON RA HA1C 11.4 IS:IV ROCEPHIN Q8HR NEURONTIN PO QD HYDRODIURIL PO QD ASA PO QD JANUVIA PO QD LIPITOR PO QD METFORMIN PO BID ACTOS PO AC&HS DIABETA PO BID \: 3E MED SURG UNIT PLAN: IMAGING: MRI LT TIB/FIB X-RAY LOWE EXT VENOUS DUPLEX DUPLEX SCAN LOW EXT ANKLE X-RAY CONSULT SURG -NEEDS DEBARMENT, POSSIBLE BONE BIOPSY, GRAFT AND WOUND VAC CONSULT ID CONSULT PODIATRY BLOOD CULTURE-PENDING OBTAIN CLEARANCE FOR SURG
--- NOTE | 2020-01-16 13:05 | Infectious Diseases Prog Note ---
Assessment/Plan Assessment/Plan Full consult to follow: A) 1) left leg wound/ulcer infection, rule out osteomyelitis 2) dm 3) pmh noted P) 1) vancomycin and cefepime 2) check cultures, MRI, labs, sr 3) podiatry and vascular surgery f/u Subjective Allergies: Coded Allergies: No Known Allergies (Unverified , 12/22/17) Objective Vital Signs Last 24 Hour Vital Signs Date Time Temp Pulse Resp B/P (MAP) Pulse Ox O2 Delivery O2 Flow Rate FiO2 01/16/20 12:00 98.0 75 18 119/81 (94) 97 01/16/20 09:11 142/92 01/16/20 09:00 Room Air 01/16/20 08:00 98.2 89 18 142/92 (109) 97 01/16/20 04:00 97.6 73 18 131/73 (92) 95 01/15/20 21:00 Room Air 01/15/20 20:00 97.6 76 16 114/63 (80) 98 01/15/20 16:00 98.6 80 20 101/57 (72) 96 Height (Feet): 5 Height (Inches): 8.00 Weight (Pounds): 182 Microbiology Date/Time Source Procedure Growth Status 01/14/20 17:35 Blood Blood Culture - Preliminary NO GROWTH AFTER 24 HOURS Resulted 01/14/20 17:20 Blood Blood Culture - Preliminary NO GROWTH AFTER 24 HOURS Resulted Laboratory Tests Test 01/16/20 07:20 Hemoglobin A1c 11.4 % (4.3-6.0) H Current Medications Medications (Trade) Dose Ordered Sig/Amarilis Route PRN Reason Start Time Stop Time Status Last Admin Dose Admin Aspirin (ASA) 325 mg DAILY ORAL 01/15/20 09:00 02/14/20 08:59 01/16/20 09:10 Atorvastatin Calcium (Lipitor) 10 mg DAILY ORAL 01/15/20 09:00 02/14/20 08:59 01/16/20 09:11 Cefazolin Sodium 1 gm/Sodium Chloride 55 ml @ 110 mls/hr Q8HR IVPB 01/15/20 14:00 01/22/20 10:59 01/16/20 05:52 Dextrose (Dextrose 50%) 25 ml Q30M PRN IV Hypoglycemia 01/16/20 06:15 02/15/20 06:14 Dextrose (Dextrose 50%) 50 ml Q30M PRN IV Hypoglycemia 01/16/20 06:15 02/15/20 06:14 Gabapentin (Neurontin) 200 mg DAILY ORAL 01/15/20 09:00 02/14/20 08:59 01/16/20 09:12 Gabapentin (Neurontin) 300 mg QHS ORAL 01/15/20 21:00 02/14/20 20:59 01/15/20 20:57 Glyburide (Diabeta) 10 mg BID ORAL 01/15/20 09:00 02/14/20 08:59 01/16/20 09:10 Hydrochlorothiazide (Hydrodiuril) 12.5 mg DAILY ORAL 01/15/20 09:00 02/14/20 08:59 01/16/20 09:11 Ibuprofen (Advil) 400 mg EVERY 8 HOURS PRN ORAL Moderate Pain (Pain Scale 4-6) 01/14/20 23:30 02/13/20 23:29 Insulin Aspart (NovoLOG) BEFORE MEALS AND HS SUBQ 01/15/20 06:30 02/14/20 06:29 01/15/20 17:08 Lisinopril (ZestriL) 10 mg DAILY ORAL 01/15/20 09:00 02/14/20 08:59 01/16/20 09:11 Metformin HCl (Glucophage) 1,000 mg BID ORAL 01/15/20 09:00 02/14/20 08:59 01/16/20 09:11 Pioglitazone HCl (Actos) 45 mg ACBREAKFAST ORAL 01/15/20 06:30 02/14/20 06:29 01/16/20 05:52 Sitagliptin Phosphate (Januvia) 100 mg DAILY ORAL 01/16/20 09:00 02/14/20 08:59 01/16/20 09:12 Kenia Amos MD Jan 16, 2020 13:05
--- NOTE | 2020-01-16 13:32 | NUR ---
SURGERY PLANNING: AUTHORIZATION SPOKE TO (YESIKA) FROM [facility] T:[id number] CM INSTRUCTED TO CALL IPA: STEFANIE (T: [phone]) REVIEWS AND CLINICALS NEED TO BE SENT AX FOR REVIEW AND AUTHORIZATION PATIENT IPA: STEFANIE MADE AWARE OF PATIENT NEEDS CLINICALS AND REVIEWS FAXED (F: [phone]) Addendum: 01/16/20 at 1339 by DENISHA ROTH LVN [facility] IN SURGERY WILL PROVIDE PROCEDURE CODE TO FAX TO INSURANCE
--- NOTE | 2020-01-16 14:25 | NUR ---
NURSE NOTES: Blood sugar prior to lunch 43 mg/dl, patient sleepy, but arousable to name. Tolerated entire lunch tray and x 2 orange juices, no NV. Rechecked blood sugar at 1313, 58 mg/dl. Dr. Shannon and Dr. Salas notified. Orders to discontinue Glyburide. Patient updated with new order, verbalized understanding.
--- NOTE | 2020-01-16 14:30 | NUR ---
NURSE NOTES: Portable Left Lower Leg XR done this AM. Wound culture obtained and sent to lab at 1303. Patient sent down for MRI of Left Tib/Fib and returned at this time, in stable condition. Patient updated on new antibiotics, verbalized understanding.
--- NOTE | 2020-01-16 14:55 | NUR ---
DISTAL LEFT TIB/FIB AND ANKLE MRI COMPLETED. TJB
[2020-01-16] MEDS: Vancomycin 750mg/D5W 275ml IVPB SCH ×2 (15:17)
[2020-01-16 16:00] VITALS: BP 121/73
--- NOTE | 2020-01-16 19:25 | NUR ---
HAND-OFF: Report given to Amanda RN, rounds made. Endorsed updated POC.
--- NOTE | 2020-01-16 19:30 | NUR ---
NURSE NOTES: Received report & pt from BIANKA Montaño. Pt lying in bed, a&ox4, in room air, family member at bedside. No s/s of acute distress & no c/o pain. Dressing C/D/I. IV site intact & S/L'd. Plan of care discussed.
[2020-01-16 20:00] VITALS: BP 120/70
[2020-01-17] VITALS: BP 121/76
[2020-01-17] MEDS: Vancomycin 750mg/D5W 275ml IVPB SCH ×4 (03:07→15:31)
[2020-01-17 04:00] VITALS: BP 117/67
[2020-01-17 06:18] LABS: ALANINE AMINOTRANSFERASE 33 U/L (12-78); ALBUMIN 2.9 G/DL (3.4-5.0); ALBUMIN/GLOBULIN RATIO 0.8 (1.0-2.7); ALKALINE PHOSPHATASE 71 U/L (46-116); ANION GAP 9 mmol/L (5-15); ASPARTATE AMINO TRANSFERASE 15 U/L (15-37); BILIRUBIN,TOTAL 0.2 MG/DL (0.2-1.0); BLOOD UREA NITROGEN 17 mg/dL (7-18); CALCIUM 9.1 MG/DL (8.5-10.1); CARBON DIOXIDE 26 MMOL/L (21-32); CHLORIDE 107 MMOL/L (98-107); CREATININE 0.8 MG/DL (0.55-1.30); POTASSIUM 4.8 MMOL/L (3.5-5.1); SODIUM 142 MMOL/L (136-145)
--- NOTE | 2020-01-17 06:32 | General Progress Note ---
Assessment/Plan Problem List: (1) Diabetes mellitus out of control ICD Codes: E11.65 - Type 2 diabetes mellitus with hyperglycemia SNOMED: 34649606, [id number] (2) Diabetic left leg infection (3) Infected ulcer of skin ICD Codes: L98.499 - Non-pressure chronic ulcer of skin of other sites with unspecified severity; L08.9 - Local infection of the skin and subcutaneous tissue, unspecified SNOMED: 2879443 Assessment/Plan: continue Metformin, Januvia and Actos as is no need for Glyburide no need for insulin after discharge Subjective Allergies: Coded Allergies: No Known Allergies (Unverified , 12/22/17) All Systems: reviewed and negative except above Subjective events RN notified me of hypoglycemia yesterday therefore I DC'ed Glyburide Item Value Date Time Bedside Blood Glucose 152 mg/dl H 01/17/20 0627 Bedside Blood Glucose 140 mg/dl H 01/16/20 2050 Bedside Blood Glucose 215 mg/dl H 01/16/20 1821 Bedside Blood Glucose 58 mg/dl L 01/16/20 1313 Hemoglobin A1c 11.4 % H 01/16/20 0720 Objective Last 24 Hour Vital Signs Date Time Temp Pulse Resp B/P (MAP) Pulse Ox O2 Delivery O2 Flow Rate FiO2 01/17/20 04:00 98.2 75 20 117/67 (84) 94 01/17/20 00:00 98.4 80 20 121/76 (91) 99 01/16/20 21:00 Room Air 01/16/20 20:00 97.9 77 18 120/70 (87) 98 01/16/20 16:00 98.1 81 20 121/73 (89) 97 01/16/20 12:00 98.0 75 18 119/81 (94) 97 01/16/20 09:11 142/92 01/16/20 09:00 Room Air 01/16/20 08:00 98.2 89 18 142/92 (109) 97 Intake and Output 01/16/20 01/17/20 19:00 07:00 Intake Total 800 ml Balance 800 ml Intake Oral 800 ml # Voids 3 3 Laboratory Tests 01/16/20 07:20: Erythrocyte Sedimentation Rate 36H, Hemoglobin A1c 11.4H 01/17/20 05:30: White Blood Count [Pending], Red Blood Count [Pending], Hemoglobin [Pending], Hematocrit [Pending], Mean Corpuscular Volume [Pending], Mean Corpuscular Hemoglobin [Pending], Mean Corpuscular Hemoglobin Concent [Pending], Red Cell Distribution Width [Pending], Platelet Count [Pending], Mean Platelet Volume [ Pending], Neutrophils (%) (Auto) [Pending], Lymphocytes (%) (Auto) [Pending], Monocytes (%) (Auto) [Pending], Eosinophils (%) (Auto) [Pending], Basophils (%) (Auto) [Pending], Sodium Level [Pending], Potassium Level [Pending], Chloride Level [Pending], Carbon Dioxide Level [Pending], Blood Urea Nitrogen [Pending], Creatinine [Pending], Estimat Glomerular Filtration Rate [Pending], Glucose Level [Pending], Calcium Level [Pending], Total Bilirubin [Pending], Aspartate Amino Transf (AST/SGOT) [Pending], Alanine Aminotransferase (ALT/SGPT) [Pending] , Alkaline Phosphatase [Pending], Total Protein [Pending], Albumin [Pending], Globulin [Pending] Height (Feet): 5 Height (Inches): 8.00 Weight (Pounds): 182 General Appearance: no apparent distress Neck: normal alignment Cardiovascular: normal rate Respiratory/Chest: lungs clear Abdomen: normal bowel sounds Objective Current Medications Medications (Trade) Dose Ordered Sig/Amarilis Route PRN Reason Start Time Stop Time Status Last Admin Dose Admin Aspirin (ASA) 325 mg DAILY ORAL 01/15/20 09:00 02/14/20 08:59 01/16/20 09:10 Atorvastatin Calcium (Lipitor) 10 mg DAILY ORAL 01/15/20 09:00 02/14/20 08:59 01/16/20 09:11 Cefepime HCl 2 gm/ Dextrose 100 ml @ 200 mls/hr Q12HR IVPB 01/16/20 21:00 01/23/20 20:59 01/16/20 20:40 Dextrose (Dextrose 50%) 25 ml Q30M PRN IV Hypoglycemia 01/16/20 06:15 02/15/20 06:14 Dextrose (Dextrose 50%) 50 ml Q30M PRN IV Hypoglycemia 01/16/20 06:15 02/15/20 06:14 Gabapentin (Neurontin) 200 mg DAILY ORAL 01/15/20 09:00 02/14/20 08:59 01/16/20 09:12 Gabapentin (Neurontin) 300 mg QHS ORAL 01/15/20 21:00 02/14/20 20:59 01/16/20 20:40 Hydrochlorothiazide (Hydrodiuril) 12.5 mg DAILY ORAL 01/15/20 09:00 02/14/20 08:59 01/16/20 09:11 Ibuprofen (Advil) 400 mg EVERY 8 HOURS PRN ORAL Moderate Pain (Pain Scale 4-6) 01/14/20 23:30 02/13/20 23:29 01/16/20 22:43 Insulin Aspart (NovoLOG) BEFORE MEALS AND HS SUBQ 01/15/20 06:30 02/14/20 06:29 01/16/20 20:49 Lisinopril (ZestriL) 10 mg DAILY ORAL 01/15/20 09:00 02/14/20 08:59 01/16/20 09:11 Metformin HCl (Glucophage) 1,000 mg BID ORAL 01/15/20 09:00 02/14/20 08:59 01/16/20 18:21 Pioglitazone HCl (Actos) 45 mg ACBREAKFAST ORAL 01/15/20 06:30 02/14/20 06:29 01/16/20 05:52 Sitagliptin Phosphate (Januvia) 100 mg DAILY ORAL 01/16/20 09:00 02/14/20 08:59 01/16/20 09:12 Vancomycin HCl (Vanco rx to dose) 1 ea DAILY PRN MISC Per rx protocol 01/16/20 13:00 02/15/20 12:59 Vancomycin HCl 750 mg/Dextrose 275 ml @ 183.333 mls/hr Q12HR@0300,1500 IVPB 01/16/20 15:00 01/21/20 14:59 01/17/20 03:07 Ankit Salas MD Jan 17, 2020 06:31
[2020-01-17 06:41] LABS: BASOPHILS % (AUTO) 0.9 % (0.0-2.0); EOSINOPHILS % (AUTO) 1.7 % (0.0-3.0); HEMATOCRIT 30.3 % (37.0-47.0); HEMOGLOBIN 10.3 G/DL (12.0-16.0); LYMPHOCYTES % (AUTO) 27.8 % (20.0-45.0); MEAN CORPUSCULAR VOLUME 81 FL (80-99); MONOCYTES % (AUTO) 6.1 % (1.0-10.0); NEUTROPHILS % (AUTO) 63.4 % (45.0-75.0); PLATELET COUNT 293 K/UL (150-450); RED BLOOD COUNT 3.74 M/UL (4.20-5.40); RED CELL DISTRIBUTION WIDTH 11.8 % (11.6-14.8)
[2020-01-17] MEDS: NovoLOG Insulin Flexpen SUBQ SCH ×3 (06:41→16:30)
--- NOTE | 2020-01-17 07:00 | NUR ---
NURSE NOTES: Left leg drsg changed.
--- NOTE | 2020-01-17 07:16 | NUR ---
HAND-OFF: Written report given to AM charge nurse for BIANKA Montaño.
[2020-01-17] MEDS ORDERED: CEFEPIME-D2 GM/50 ML IVPB (07:36)
[2020-01-17] MEDS ORDERED: VANCOMYCIN750 MG/150 IV (07:36)
--- NOTE | 2020-01-17 07:43 | Pulmonology Progress Note ---
Assessment/Plan Assessment/Plan IMPRESSION: 1. Nonhealing ulcer, left lower extremity. 2. Diabetes mellitus. DISCUSSION: Continue broad-spectrum antibiotics. Seen by Podiatry and Vascular Surgery. Noted arterial studies of the lower extremities. S/p MRI yesterday Suspect osteomyelitis Podiatry unable to debride today WIll dc home with PICC and IV abx Outpt followup Boom Shannon M.D. Subjective Interval Events: None new Constitutional: Reports: no symptoms HEENT: Repors: no symptoms Respiratory: Reports: no symptoms Cardiovascular: Reports: no symptoms Genitourinary: Reports: no symptoms Allergies: Coded Allergies: No Known Allergies (Unverified , 12/22/17) Objective Last 24 Hour Vital Signs Date Time Temp Pulse Resp B/P (MAP) Pulse Ox O2 Delivery O2 Flow Rate FiO2 01/17/20 04:00 98.2 75 20 117/67 (84) 94 01/17/20 00:00 98.4 80 20 121/76 (91) 99 01/16/20 21:00 Room Air 01/16/20 20:00 97.9 77 18 120/70 (87) 98 01/16/20 16:00 98.1 81 20 121/73 (89) 97 01/16/20 12:00 98.0 75 18 119/81 (94) 97 01/16/20 09:11 142/92 01/16/20 09:00 Room Air 01/16/20 08:00 98.2 89 18 142/92 (109) 97 Intake and Output 01/16/20 01/17/20 19:00 07:00 Intake Total 800 ml Balance 800 ml Intake Oral 800 ml # Voids 3 3 General Appearance: no acute distress HEENT: normocephalic Respiratory/Chest: chest wall non-tender, lungs clear Cardiovascular: normal peripheral pulses Abdomen: normal bowel sounds Microbiology Date/Time Source Procedure Growth Status 01/14/20 17:35 Blood Blood Culture - Preliminary NO GROWTH AFTER 48 HOURS Resulted 01/14/20 17:20 Blood Blood Culture - Preliminary NO GROWTH AFTER 48 HOURS Resulted Laboratory Tests 01/17/20 05:30: White Blood Count 8.0, Red Blood Count 3.74L, Hemoglobin 10.3L, Hematocrit 30.3L , Mean Corpuscular Volume 81, Mean Corpuscular Hemoglobin 27.4, Mean Corpuscular Hemoglobin Concent 33.9, Red Cell Distribution Width 11.8, Platelet Count 293, Mean Platelet Volume 6.8, Neutrophils (%) (Auto) 63.4, Lymphocytes (% ) (Auto) 27.8, Monocytes (%) (Auto) 6.1, Eosinophils (%) (Auto) 1.7, Basophils ( %) (Auto) 0.9, Sodium Level 142, Potassium Level 4.8, Chloride Level 107, Carbon Dioxide Level 26, Anion Gap 9, Blood Urea Nitrogen 17, Creatinine 0.8, Estimat Glomerular Filtration Rate > 60, Glucose Level 149H, Calcium Level 9.1, Total Bilirubin 0.2, Aspartate Amino Transf (AST/SGOT) 15, Alanine Aminotransferase (ALT/SGPT) 33, Alkaline Phosphatase 71, Total Protein 6.6, Albumin 2.9L, Globulin 3.7, Albumin/Globulin Ratio 0.8L Current Medications Medications (Trade) Dose Ordered Sig/Amarilis Route PRN Reason Start Time Stop Time Status Last Admin Dose Admin Aspirin (ASA) 325 mg DAILY ORAL 01/15/20 09:00 02/14/20 08:59 01/16/20 09:10 Atorvastatin Calcium (Lipitor) 10 mg DAILY ORAL 01/15/20 09:00 02/14/20 08:59 01/16/20 09:11 Cefepime HCl 2 gm/ Dextrose 100 ml @ 200 mls/hr Q12HR IVPB 01/16/20 21:00 01/23/20 20:59 01/16/20 20:40 Chlorhexidine Gluconate (Amairani-Hex 2%) 1 applic DAILY@2000 TOPIC 01/17/20 20:00 02/16/20 19:59 Dextrose (Dextrose 50%) 25 ml Q30M PRN IV Hypoglycemia 01/16/20 06:15 02/15/20 06:14 Dextrose (Dextrose 50%) 50 ml Q30M PRN IV Hypoglycemia 01/16/20 06:15 02/15/20 06:14 Gabapentin (Neurontin) 200 mg DAILY ORAL 01/15/20 09:00 02/14/20 08:59 01/16/20 09:12 Gabapentin (Neurontin) 300 mg QHS ORAL 01/15/20 21:00 02/14/20 20:59 01/16/20 20:40 Heparin Sodium/ Sodium Chloride (Heparin 1000 units/500ml Premix) 1,000 unit ONCE IV 01/17/20 07:45 01/17/20 16:00 Hydrochlorothiazide (Hydrodiuril) 12.5 mg DAILY ORAL 01/15/20 09:00 02/14/20 08:59 01/16/20 09:11 Ibuprofen (Advil) 400 mg EVERY 8 HOURS PRN ORAL Moderate Pain (Pain Scale 4-6) 01/14/20 23:30 02/13/20 23:29 01/16/20 22:43 Insulin Aspart (NovoLOG) BEFORE MEALS AND HS SUBQ 01/15/20 06:30 02/14/20 06:29 01/17/20 06:41 Lidocaine HCl (Xylocaine 1% 30ml) 30 ml ONCE INJ 01/17/20 07:45 01/17/20 16:00 Lisinopril (ZestriL) 10 mg DAILY ORAL 01/15/20 09:00 02/14/20 08:59 01/16/20 09:11 Metformin HCl (Glucophage) 1,000 mg BID ORAL 01/15/20 09:00 02/14/20 08:59 01/16/20 18:21 Pioglitazone HCl (Actos) 45 mg ACBREAKFAST ORAL 01/15/20 06:30 02/14/20 06:29 01/17/20 06:40 Sitagliptin Phosphate (Januvia) 100 mg DAILY ORAL 01/16/20 09:00 02/14/20 08:59 01/16/20 09:12 Vancomycin HCl (Vanco rx to dose) 1 ea DAILY PRN MISC Per rx protocol 01/16/20 13:00 02/15/20 12:59 Vancomycin HCl 750 mg/Dextrose 275 ml @ 183.333 mls/hr Q12HR@0300,1500 IVPB 01/16/20 15:00 01/21/20 14:59 01/17/20 03:07 Boom Shannon MD Jan 17, 2020 07:43
[2020-01-17] MEDS ORDERED: Heparin1,000 units/500ml Premix(Conc:2 units/ml) IV SCH (07:45)
[2020-01-17] MEDS ORDERED: Lidocaine 1% Plain 30 ml INJ SCH (07:45)
[2020-01-17 08:00] VITALS: BP 119/72
--- NOTE | 2020-01-17 08:10 | NUR ---
NURSE NOTES: Written report received, rounds made. Patient resting in semi-fowlers position in bed. No distress, SOB, pain, NV. RAC heplock intact. LLE dressing CDI. Call light in reach, bed in lowest position, will continue to monitor.
[2020-01-17] MEDS: hydroCHLOROthiazide 12.5mg TAB ORAL SCH (10:04)
[2020-01-17] MEDS: Lisinopril 10mg tab ORAL SCH (10:04)
[2020-01-17] MEDS: metFORMIN 500mg tab ORAL SCH ×2 (10:05→18:18)
--- NOTE | 2020-01-17 10:33 | Diagnostic Imaging Report ---
. Indication: Lateral open soft tissue wound. Suspected osteomyelitis on recent plain radiographs Technique: Sagittal, coronal, and axial T1 weighted and STIR images obtained through the left tibia and fibula Comparison: Plain radiographs of earlier the same day Findings: There is a large lateral soft tissue ulcer, extending all the way through the subcutaneous fat to the superficial fascia of the anterior and lateral muscular compartments. There is some associated soft tissue edema. A second small ulcer is located more posteriorly. No marrow signal abnormality is demonstrated, either of the subjacent distal fibula or elsewhere. There is slight thickening of the periosteum of the fibula just deep to the ulcer. No focal drainable soft tissue collections are demonstrated. No soft tissue gas is evident. Impression: Lateral subcutaneous soft tissue ulcer, responding to stated clinical findings. There is associated soft tissue edema. No drainable abscess collection demonstrated No marrow abnormality to suggest acute osteomyelitis Small apparent slight thickening of the lateral distal tibial periosteum, presumably chronic and likely explaining findings reported on recent radiographs
[2020-01-17 12:00] VITALS: BP 130/78
--- NOTE | 2020-01-17 12:03 | NUR ---
DISCHARGE PLANNING: PATIENT REFERRED FOR HOME HEALTH CLINICALS FAXED TO [employer]UR[employer] F: [phone] [facility]ERRED TO [facility]: [phone] WAITING FOR RESPONSE
--- NOTE | 2020-01-17 12:16 | Pre-Procedure Note/Attestation ---
Pre-Procedure Note/Attestation Complete Prior to Procedure Planned Procedure: not applicable Procedure Narrative: PICC Indications for Procedure Pre-Operative Diagnosis: needs terminal carman abx Attestation I attest that I discussed the nature of the procedure; its benefits; risks and complications; and alternatives (and the risks and benefits of such alternatives ), prior to the procedure, with the patient (or the patient's legal sales account representative). I attest that, if there was a reasonable possibility of needing a blood transfusion, the patient (or the patient's legal sales account representative) was given the [facility] standardized written summary, pursuant to the Eduard Joshua Blood Safety Act ([place] Health and Safety Code # 1645, as amended). I attest that I re-evaluated the patient just prior to the surgery and that there has been no change in the patient's H&P, except as documented below: Polo Tom MD Jan 17, 2020 12:16
--- NOTE | 2020-01-17 12:17 | Brief Operative Note ---
Immediate Post Operative Note Operative Note Pre-op Diagnosis: needs terminologist abx Procedure: PICC Post-op Diagnosis: same as pre-op Surgeon: Jojo TOM Specimen: none Complications: none Condition: stable Fluids: none Implant(s) used?: No Polo Tom MD Jan 17, 2020 12:17
--- NOTE | 2020-01-17 12:30 | NUR ---
NURSE NOTES: Patient signed consent for PICC, sent down at 1115, returned at 1205, DORIE double lumen PICC, dressing CDI, with biopatch. Flushed both ports, applied extension, patent, clamped, with orange cap.
--- NOTE | 2020-01-17 14:20 | NUR ---
RD ASSESSMENT & RECOMMENDATIONS SEE CARE ACTIVITY FOR COMPLETE ASSESSMENT DAILY ESTIMATED NEEDS: Needs based on DM/ 63kg abw 25-30 kcals/kg 8468-0174 total kcals 1-1.3 g protein/kg 63--82 g total protein 25-30 mL/kg 3834-3410 total fluid mLs NUTRITION DIAGNOSIS: Altered nutrition related lab values R/T diabetes as evidenced by A1C of 11.4, w/ elev BGs. CURRENT DIET:CCHO Med PO DIET RECOMMENDATIONS: CCHO LOW + 1 carb snacks in b/w meals ADDITIONAL RECOMMENDATIONS: * Standing wt for accurate CBW * DM diet ed/handout provided in Indonesian * Monitor for hypoglycemic episodes -> rec 1 carb snacks TID in b/w meals. * Ulcer healing: MVI x 1, Vit C 250mg QD.
--- NOTE | 2020-01-17 14:32 | Diagnostic Imaging Report ---
Indications: Needs long-term IV access Technique: Ultrasound confirms patent compressible left basilic vein. Total sterile technique, including sterile probe cover and sterile gel, hat, mask, sterile gown, large sterile drape, and preparation with 2% chlorhexidine utilized. Local anesthesia with 1% lidocaine. Under real-time ultrasound guidance, puncture basilic vein using 21-gauge needle, documented and archived, passage 0.018 guidewire under direct fluoroscopy, which was used to determine appropriate catheter length, exchange for 4 Taiwanese peel-away sheath. 4 Taiwanese Bard dual-lumen power PICC cut to 43 cm. It was inserted through the peel-away sheath. Peel-away sheath and guidewire removed. Catheter fixed to the skin. Both catheter ports aspirated and flushed. Patient tolerated procedure well, without immediate complication. Digital radiograph documents satisfactory catheter tip position, at the cavoatrial junction. Total fluoroscopy time 12.6 seconds. Total dose area product [id number] [id number] Total number of images: 1 Impression: Successful placement of left arm PICC under sonographic and fluoroscopic guidance, as described above.
--- NOTE | 2020-01-17 15:06 | NUR ---
*-* INSURANCE *-* ALL CLINICALS AND REVIEWS HAVE BEEN FAXED TO: [facility] AUTH#[id number] FAX CLINICALS TO [facility] [phone]
[2020-01-17 16:00] VITALS: BP 118/65
--- NOTE | 2020-01-17 16:42 | NUR ---
DISCHARGE PLANNED: PAT[facility] ACCEPTED TO: [facility] F: [phone]
--- NOTE | 2020-01-17 19:30 | NUR ---
HAND-OFF: Report given to Joleen CARLTON, rounds made. Endorsed patient to be discharged tonight at 1999.
--- NOTE | 2020-01-17 19:40 | NUR ---
NURSE NOTES: Received report from BIANKA Montaño. AAO x 4, room air. PICC line intact and patent. Family at bedside and waiting discharge. No pain and cute distress noted. Wound dressing clean and dry. Bed locked, lowest position, alarm on, call light within reach. Wll continue to monitor.
[2020-01-17 20:00] VITALS: BP 122/65
[2020-01-17] MEDS ORDERED: Dyna-Hex 2% Top Sol 2oz TOPIC SCH (20:00)
[2020-01-17] MEDS ORDERED: Tubing IV Secondary IV ONE ×2 (20:14)
--- NOTE | 2020-01-17 20:24 | NUR ---
NURSE NOTES: Pt discharged via wheelchair with family member to home with home health. Pt is stable condition. Provided all supplies for wound care and discharge instruction. Discharged with picc for antibiotic meds. All belongings sent to with pt. ID band removed.
--- NOTE | 2020-01-17 21:00 | Consultation ---
DATE OF CONSULTATION: 01/16/2020 INFECTIOUS DISEASE CONSULTATION CONSULTING PHYSICIAN: Kenia Amos M.D. ATTENDING PHYSICIAN: Boom Shannon M.D. REFERRING PHYSICIAN: Boom Shannon M.D. REASON FOR CONSULTATION: Infected left leg wound and ulcer, rule out osteo. CHIEF COMPLAINT: The patient's chief complaint coming in to the hospital is infected left leg wound, rule out osteo, infected left leg ulcer also. HISTORY OF PRESENT ILLNESS: This is a very pleasant 59-year-old female, who presents to [facility] with worsening left leg wound. She said her wound got larger and she has had this for quite some time on and off, but it has progressively got worse. Clinically, looks like she has an infected left leg wound. When I saw the patient, I started her on vancomycin and cefepime antibiotics. Wound culture was also ordered. MRI was ordered. Results are pending. The patient also had x-rays of the leg with results pending. The patient will be continued on vancomycin and cefepime for now for possible left leg infected wound and ulcer and possible osteo. The patient is being followed by Podiatry and Vascular Surgery also. REVIEW OF SYSTEMS: CONSTITUTIONAL: Main issue is the left leg wound. No significant or severe pain, but she does have some pain in the left leg wound site and ulcer site. She has no fever, chills, night sweats. CARDIAC: No chest pain. GASTROINTESTINAL: No nausea, vomiting, or diarrhea. GENITOURINARY: No CVA tenderness or Meneses. PULMONARY: No shortness of breath. SKIN: No rash. NEUROLOGIC: No seizures. PAST MEDICAL HISTORY: The patient's past medical history includes the following. The patient has a past medical history of left leg ulcer and wound that is progressively getting worse. The patient also has a history of diabetes mellitus. Other past medical history includes hypertension and per the records cardiac disease, I am not clear what type. ALLERGIES: No known drug allergies. No antibiotic allergies. SOCIAL HISTORY: Negative for smoking, alcohol, or drug abuse. FAMILY HISTORY: Noncontributory. MEDICATIONS: Upon reviewing the MAR, she is on the following medications. I have put her on vancomycin and cefepime. She is on heparin subcutaneous. She is on Januvia. She is on intravenous fluid, aspirin, gabapentin, atorvastatin, metformin, lisinopril, hydrochlorothiazide, Actos, insulin. Outside medications were noted and reconciliated. PHYSICAL EXAMINATION: VITAL SIGNS: The patient's temperature is 98.2, pulse rate 89, respiratory rate 18, blood pressure 142/92, and saturation 97% on room air. GENERAL: Alert and responsive, in no distress. Seems to be oriented. HEAD AND NECK: Oral exam, no thrush. Eye exam, no icterus. Normocephalic. Neck is supple. No JVD. HEART: Regular. No gallop or murmur. No friction rub. ABDOMEN: Soft. Positive bowel sounds. Nontender. LUNGS: Clear bilaterally. No rhonchi or rales. SKIN: No rashes. MUSCULOSKELETAL: No effusion. EXTREMITIES: Left leg has a wound and ulcer that is quite significant with slough. No cellulitis noted. Somewhat of a deep wound also. PERIPHERAL VASCULAR: No gangrene. GENITOURINARY: No Meneses. No CVA tenderness. LINE SITES: Without phlebitis. NEUROLOGIC: Intact and nonfocal. Alert and oriented. LABORATORY DATA: White count 8.0 and hemoglobin 10.7. Creatinine 0.7. LFTs noted. Wound cultures pending. MRI and other x-rays are pending of the left lower extremity. Blood cultures so far are negative. Sedimentation rate has also been ordered. ASSESSMENT AND PLAN: 1. The patient has left leg wound and ulcer that is progressively getting worse with possible infected wound, rule out osteo. At this time, we will treat with vancomycin and cefepime for MRSA and gram-negative coverage. Continue vancomycin and cefepime for left leg infected wound and ulcer and rule out osteo. Await MRI and other x-rays. Check sedimentation rate. The patient is being followed by Vascular Surgery and Podiatry for further workup. Continue vancomycin and cefepime. Follow up on cultures, MRI, and monitor laboratories closely. 2. Diabetes. 3. Hypertension. 4. Questionable history of cardiac disease. 5. History of left leg wound that is somewhat chronic. 6. Left leg wound is chronic. 7. No known allergies. 8. Social history is negative. 9. Family history is noncontributory. 10. MAR is noted. 11. Case was discussed with RN. 12. Continue treatment per primary consultants. Kenia Amos M.D. DR: SONDRA JOB#: [id number] CC:
--- NOTE | 2020-01-19 14:33 | Discharge Summary ---
Discharge Summary Discharge Summary _ DATE OF ADMISSION: 01/14/2020 DATE OF DISCHARGE: 01/17/2020 DISCHARGED BY: Dr. Debra Shannon CONSULTANTS: Dr. Kenia Lyon BRIEF HOSPITAL COURSE: Patient is a 59-year-old female, who is a known diabetic. She came to the hospital due to gradually worsening ulcer over the left lower extremity. She failed oral antibiotics. She had drainage in the wound. She has been compliant with her diabetic medications. Upon evaluation at ED, vital signs were stable. She had a noted left lower extremity ulcer. Blood work did not show any leukocytosis. IV vancomycin 11 and hematocrit 32. Venous duplex of the lower extremity did not show any evidence of thrombosis. Vascular surgeon was consulted. Patient had palpable femoral pulse, palpable pulse. Medial and dorsalis pedis pulse 3+. Feet were warm and well-perfused. Patient has venous stasis changes in the lower extremity. She has a large open left lateral above ankle wound and necrosis with positive palpable fibular bone through the wound, consistent with necrosis but no patient has clinical osteomyelitis and wound necrosis. Pedal pulses did not show any significant arterial insufficiency. She was given IV Electricity Trader was consulted. Patient blood glucose stable on metformin, Januvia and Actos. Recommend no need to be on insulin injections. She had an episode of hypoglycemia. Glyburide discontinued. She was seen by drivers license examiner. She was given wound care. X-ray of the left ankle was concerning for osteomyelitis. X-ray of the left tibia and fibula showed possible osteomyelitis. MRI of the left leg showed lateral subcutaneous soft tissue ulcer, responding to stated clinical findings. No associated soft tissue edema. No drainable abscess collection. No marrow abnormality to suggest acute osteomyelitis. Patient will require prolonged IV antibiotics. On 01/17/2020, PICC line was inserted to the left vein. She was eventually discharged home. FINAL DIAGNOSES: Left leg wounds with clinical findings concerning for osteomyelitis Diabetes mellitus [id number] Hypertension Questionable history of cardiac disease DISPOSITION: Patient was discharged home with home health. DISCHARGE MEDICATIONS: Refer to Discharge Medication List. DISCHARGE INSTRUCTIONS: Follow-up in a week. I have been assigned to complete a discharge summary on this account, I was not involved with the patient's management.--J. Licauco, Norma Rajput NP Jan 19, 2020 14:33
--- NOTE | 2020-01-20 10:33 | NUR ---
*-* INSURANCE *-* ALL CLINICALS AND REVIEWS HAVE BEEN FAXED TO: [facility] AUTH#[id number] FAX CLINICALS TO [facility] [phone] & [facility]: Genny [phone] Work Work
== END 2020-01-17 20:15 | disposition home health service (06) | DRG 593 ==
LOC: EMR 17:30 → OBSVTOIN 20:02 → 3E 20:02 → EDBEDREQ 20:50 → SDSOVERFLO 01-16 10:41 → 3E 01-16 10:43
PROC: 02HV33Z Insertion of Infusion Device into Superior Vena Cava, Percutaneous Approach (ICD-10-PCS; principal; 2020-01-17)
DX: L97.929 Non-pressure chronic ulcer of unspecified part of left lower leg with unspecified severity (principal); M86.9 Osteomyelitis, unspecified; E11.65 Type 2 diabetes mellitus with hyperglycemia; E66.9 Obesity, unspecified; Z68.27 Body mass index [BMI] 27.0-27.9, adult; E11.69 Type 2 diabetes mellitus with other specified complication
CPT/HCPCS: 36415; 36569; 76937; 80053; 82962; 83036; 83605; 85025; 85651; 87040; 87070; 87181; 87205; 93925; 93970; 96365; 99284; J1815